=== PATIENT | female | born 1990 | race Caucasian/White ===

== ENCOUNTER 2019-07-24 21:03 | Emergency (ER) | payer BC ==
[~2019-07-24] VITALS: Ht 152.4 cm; Wt 62.6 kg
[2019-07-24 21:07] VITALS: Ht 152.4 cm; Wt 62.6 kg
[2019-07-24 23:41] VITALS: BP 127/79
== END 2019-07-24 23:40 | disposition home or self-care (01) ==
LOC: ED 21:03
DX: F41.9 Anxiety disorder, unspecified (principal); R07.89 Other chest pain